=== PATIENT | male | born 1960 | race Caucasian/White ===

== ENCOUNTER → 2018-08-04 | Outpatient (CLI) | payer OTHER ==
[~2018-08-04] MED LIST: ACYC800 PO; ALBU90OI INH; ASPI325 PO; ASPI81CH PO; ASPI81EC PO; ATOR20 PO; ATOR40TA PO; BENZ100A PO; Bactrim Ds Tab1 EACH PO; CEPH500 PO; CLIN300 PO; Cipro500 MG PO; GABA100 PO; GABA300 PO; GABA400 PO; HYDMOR2 PO; Humalog100 UNIT/1 SC; INSLI100I; INSULANPEN; INSULANPEN SC; INSULIN; LEVFLO500 PO; LIDO5TP TOP; METF500 PO; METF500C; METF500C PO; MULVITMIND PO; Mucinex600 MG PO; NAPR550 PO; Norco 5-325 Ta1 EACH PO; OXYACE5T PO; OXYACE7.5T PO; Percocet 5-3251 EACH PO; RXNAPNA550 PO; SIMV40; SULTRIDS PO; TAMS.4ER PO; Vistaril25 MG PO; [UNRECOGNIZED DRUG - OTHER]
== END | disposition home or self-care (01) ==
LOC: LAB EV 18:22 → LAB SHORT 18:22
DX: L72.3 Sebaceous cyst (principal)
CPT/HCPCS: 87070; 87075; 87077; 87147; 87186; 87205

== ENCOUNTER 2018-10-23 14:50 | Emergency (ER) | payer OTHER ==
[~2018-10-23] VITALS: Ht 175.3 cm; Wt 124.7 kg
[2018-10-23] MEDS ORDERED: GABA400 PO (15:11)
[2018-10-23] MEDS ORDERED: Norco 5-325 Ta1 EACH PO (17:21)
[2018-10-23 17:54] LABS: Source, Urine Clean Catch
[2018-10-23 17:57] LABS: Bilirubin, Urine Neg (Neg); Blood, Urine Neg (Neg); Glucose Qualitative, Urine 1+ (Neg); Ketones, Urine Neg (Neg); Leukocyte Esterase, Urine 1+ (Neg); Nitrite, Urine Neg (Neg); Protein, Urine Neg (Neg); Specific Gravity, Urine 1.025 (1.003-1.022); Urobilinogen, Urine NORM (Normal)
[2018-10-23 18:14] LABS: Appearance, Urine Clear (Clear); Color, Urine Yellow (P-Yellow)
[2018-10-23 18:15] LABS: Bacteria Not Seen /hpf; Red Blood Cells, Urine Rare /hpf (0-2); Squamous Epithelial Cells Rare /hpf (Few); White Blood Cells, Urine 0-2 /hpf (0-5)
[2018-10-23 18:16] LABS: Mucus Light (0-Heavy)
[2018-10-23 18:18] LABS: Spermatozoa Rare /hpf
[2018-10-23 18:19] LABS: Hyaline Casts 0-2 /lpf (0-2)
[2018-10-23] MEDS ORDERED: Cephalexin500 M1 PO (18:27)
== END 2018-10-23 18:42 | disposition home or self-care (01) ==
LOC: ER 14:50
PROVIDERS: Physician Assistant
DX: I86.1 Scrotal varices (principal); L03.111 Cellulitis of right axilla; Z91.048 Other nonmedicinal substance allergy status; Z88.4 Allergy status to anesthetic agent; Z79.899 Other long term (current) drug therapy; E11.9 Type 2 diabetes mellitus without complications; G43.909 Migraine, unspecified, not intractable, without status migrainosus
CPT/HCPCS: 76870; 81001; 87086; 96372; 99284-25; J1170

== ENCOUNTER → 2020-07-02 | Outpatient (CLI) | payer OTHER ==
[~2020-07-02] MED LIST changes: +Cephalexin500 M1 PO
== END | disposition home or self-care (01) ==
LOC: LAB 07:34
DX: L98.8 Other specified disorders of the skin and subcutaneous tissue (principal); B35.3 Tinea pedis
CPT/HCPCS: 87220

== ENCOUNTER → 2020-07-02 | Outpatient (CLI) | payer OTHER | END | disposition home or self-care (01) | LOC: PLD 07:53 → LAB SHORT 07:53 | DX: B35.1 Tinea unguium (principal) | CPT/HCPCS: 88305; 88312 ==

== ENCOUNTER 2021-02-13 19:10 | Emergency (ER) | payer OTHER ==
[~2021-02-13] VITALS: Ht 177.8 cm; Wt 131.1 kg
[2021-02-13] MEDS ORDERED: CEPH500 PO (21:01)
== END 2021-02-13 21:45 | disposition home or self-care (01) ==
LOC: ER 19:10
DX: L03.116 Cellulitis of left lower limb (principal); E11.9 Type 2 diabetes mellitus without complications; Z79.4 Long term (current) use of insulin; Z79.899 Other long term (current) drug therapy; Z91.048 Other nonmedicinal substance allergy status
CPT/HCPCS: 0031A; 93926; 99283-25; A9270

== ENCOUNTER → 2022-02-04 | Outpatient (CLI) | payer OTHER | END | disposition home or self-care (01) | LOC: LAB 15:15 → LAB SHORT 15:15 | DX: E11.65 Type 2 diabetes mellitus with hyperglycemia (principal) | CPT/HCPCS: 82043 ==

== ENCOUNTER 2022-10-29 19:23 | Emergency (ER) | payer OTHER ==
[~2022-10-29] VITALS: Ht 175.3 cm; Wt 127.0 kg
[2022-10-29 21:29] LABS: BASOPHILS ABSOLUTE AUTO 0.03 K/mm3 (0.00-0.23); BASOPHILS PERCENT AUTO 0 % (0-2); EOSINOPHILS ABSOLUTE AUTO 0.29 K/mm3 (0.00-0.68); EOSINOPHILS PERCENT AUTO 2 % (0-6); Hematocrit 45.6 % (37.0-53.0); Hemoglobin 16.3 g/dL (13.5-17.5); IMMATURE GRAN ABSOLUTE AUTO 0.11 K/mm3 (0.00-0.10); IMMATURE GRAN PERCENT AUTO 1 % (0-1); LYMPHOCYTES ABSOLUTE AUTO 0.63 K/mm3 (0.84-5.20); LYMPHOCYTES PERCENT AUTO 5 % (21-46); MONOCYTES ABSOLUTE AUTO 1.25 K/mm3 (0.16-1.47); MONOCYTES PERCENT AUTO 10 % (4-13); Mean Corpuscular HGB 29.3 pg (26.0-34.0); Mean Corpuscular HGB Conc 35.7 g/dL (31.5-36.5); Mean Corpuscular Volume 82 fL (80-100); Mean Platelet Volume 10.3 fL (9.1-12.4); NEUTROPHILS PERCENT AUTO 82 % (41-73); Platelet Count 144 K/mm3 (150-400); RDW Coefficient Variation 13.1 % (11.7-14.2); RDW Standard Deviation 38.6 fL (35.1-46.3); Red Blood Cell Count 5.57 M/mm3 (4.30-5.90); White Blood Cell Count 12.91 K/mm3 (4.00-11.30)
[2022-10-29 22:03] LABS: Albumin, Blood 2.9 g/dL (3.4-5.0); Albumin/Globulin Ratio 0.6 (0.8-1.8); Beta-hydroxybutyrate 5.6 mg/dL (0.2-2.8); Bilirubin, Total 1.8 mg/dL (0.1-1.0); Bun/Creatinine Ratio 17.2 (12.0-20.0); Creatinine, Blood 0.58 mg/dL (0.60-1.20); Globulin, Blood 4.9 g/dL (2.2-4.0); Potassium, Blood 4.1 mmol/L (3.5-5.5); Total Protein, Blood 7.8 g/dL (6.4-8.2)
[2022-10-29 23:39] LABS: PCO2 Venous 37.6 mmHg (38-42); pH Blood Venous 7.45 (7.34-7.37)
[2022-10-29 23:40] LABS: Bicarbonate Venous 26.2 mmol/L (24.0-30.0)
[2022-10-30 05:42] LABS: Source, Urine Clean Catch
[2022-10-30 05:51] LABS: Appearance, Urine Hazy (Clear); Bilirubin, Urine Neg (Neg); Blood, Urine 4+ (Neg); Color, Urine Yellow (P-Yellow); Glucose Qualitative, Urine 4+ (Neg); Ketones, Urine 1+ (Neg); Leukocyte Esterase, Urine 2+ (Neg); Nitrite, Urine Neg (Neg); Protein, Urine 3+ (Neg); Urobilinogen, Urine 2+ (Normal)
[2022-10-30 06:01] LABS: Bacteria Many /hpf; Hyaline Casts 0-2 /lpf (0-2); Mucus Light (0-Heavy); Squamous Epithelial Cells Few /hpf (Few)
[2022-10-30] MEDS ORDERED: CIPR500 PO (06:17)
[2022-10-30 06:31] VITALS: BP 125/73
[2022-10-30] MEDS ORDERED: ONDA4ODT MM (06:37)
== END 2022-10-30 07:18 | disposition home or self-care (01) ==
LOC: ER 19:23
PROVIDERS: Student in an Organized Health Care Education/Training Program
DX: A41.9 Sepsis, unspecified organism (principal); N39.0 Urinary tract infection, site not specified; E86.0 Dehydration; E11.65 Type 2 diabetes mellitus with hyperglycemia; Z79.899 Other long term (current) drug therapy; Z79.84 Long term (current) use of oral hypoglycemic drugs; Z79.4 Long term (current) use of insulin; Z91.048 Other nonmedicinal substance allergy status; G43.909 Migraine, unspecified, not intractable, without status migrainosus
CPT/HCPCS: 36415; 71046; 80053; 81001; 82010; 82803; 83605; 83690; 83930; 85025; 93005; 93010; 96361; 96365; 96375; 99284-25; A9270; J0696; J1885; J2405; J7030

== ENCOUNTER → 2024-06-21 | Outpatient (CLI) | payer OTHER ==
[~2024-06-21] MED LIST changes: +CIPR500 PO; +ONDA4ODT MM
== END ==
LOC: PLD 08:01 → LAB SHORT 08:01 → LAB 08:01
DX: B35.1 Tinea unguium (principal); L60.2 Onychogryphosis
CPT/HCPCS: 88305; 88312